=== PATIENT | male | born 2000 | race Caucasian/White ===

== ENCOUNTER 2022-11-10 19:39 | Emergency (ER) | payer BC, OTHER ==
[~2022-11-10] VITALS: Ht 190 cm; Wt 81.6 kg
--- NOTE | 2022-11-10 20:11 | ED EENT ---
History of Present Illness General Chief Complaint: Eye Problems Stated Complaint: LEFT EYE PAIN/SWELLING/REDNESS Nursing Triage Note: PATIENT STATES 2MO AGO "GOT A BUMP ON EYE" SAW AN EYE DOCTOR, RECIEVED EYE OINTMENT, DIDN'T HELP THUS THE BUMP "GOT BIGGER" NO PAIN GOT ANNOYING Source: patient Exam Limitations: no limitations History of Present Illness Date Seen by Provider: Nov 10, 2022 Time Seen by Provider: 20:09 Initial Comments Patient is a 22-year-old male who presents ED with a stye to his left upper eyelid. He has had this lump for the past 2 months. Patient reports increased size. Patient reports some pain with blinking. Denies of any surrounding redness or swelling. Patient saw a physician/allergy/immunology here in [place] 3 weeks ago placed on the eye drop to see if this helped. Patient has been using the ointment for the past 3 weeks without improvement. Patient has contacted multiple local physician/allergy/immunology and states he is not able to get seen until January. Patient denies of any visual loss, vomiting, diarrhea, fever, chills Allergies and Home Medications Allergies Coded Allergies: No Known Drug Allergies (Unverified , 11/10/22) Patient Home Medication List Home Medication List Reviewed: Yes Review of Systems Review of Systems Constitutional: No chills, No diaphoresis, No malaise, No weakness Eyes: Denies Decreased Acuity; Pain, Other (upper eyelid nodule) Ears: Denies Dizziness, Denies Pain, Denies Tinnitus, Denies Bloody Discharge Nose: denies clots, denies congestion Mouth: denies loose teeth, denies pain, denies swelling Throat: denies pain, denies swelling Respiratory: No cough, No dyspnea on exertion Cardiovascular: No chest pain Gastrointestinal: No abdominal pain, No diarrhea, No nausea, No vomiting Musculoskeletal: No back pain, No joint pain, No joint swelling, No muscle pain Skin: No change in color, No change in hair/nails All Other Systems Reviewed Negative Unless Noted: Yes Past Rriphjt-Atmuur-Njyiby Hx Patient Social History Tobacco Use?: No Use of E-Cig and/or Vaping dev: No Substance use?: No Alcohol Use?: No Pt feels they are or have been: No Immunizations Up To Date Influenza Vaccine Up-to-Date: No; Not Current First/Initial COVID19 Vaccinat: N/A Second COVID19 Vaccination Jay: N/A Past Medical History Surgery/Hospitalization HX: NONE Physical Exam Vital Signs Vital Signs - First Documented 11/10/22 19:50 Temp 36.5 Pulse 76 Resp 20 B/P (MAP) 147/100 (116) Pulse Ox 100 O2 Delivery Room Air Height, Weight, BMI Height: '" Weight: lbs. oz. kg; 22.00 BMI Method: General Appearance: WD/WN, no apparent distress Eyes: left eye other (Pea-sized nodule left upper eyelid. No purulent drainage. Extraocular was intact pupils reactive light. 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 No active drainage. Concern for stye. Increased size for the past 2 months. Patient was wanting this drained here in the ED. Patient has followed up with [facility] eye care 3 weeks ago was placed on antibiotic eyedrops without much improvement. Patient has called multiple project lead but not able to get seen until January. On exam he does have a stye to this location. Discussed with patient that this needs to see a project lead. Due to location I do not feel comfortable draining. I suggested contacting the physician/allergy/immunology who saw him initially for further guidance. They did offer a referral to someone who would according to the patient. Discussed warm compresses. There is no evidence of periorbital cellulitis. Patient states it feels more uncomfortable. Impression Primary Impression: Stye Disposition: 01 HOME, SELF-CARE Condition: Stable Departure-Patient Inst. Decision time for Depature: 20:10 Referrals: [facility] [place],LOCAL PHYSICIAN (PCP) Primary Care Physician Patient Instructions: Lauryn (DC) Add. Discharge Instructions: Need to follow-up with [facility] eye care for further evaluation. Warm compresses. Continue with antibiotic All discharge instructions reviewed with patient and/or family. Voiced understanding. MARY DILL Nov 10, 2022 20:11
[2022-11-10 20:14] VITALS: BP 141/94
== END 2022-11-10 20:15 | disposition home or self-care (01) ==
LOC: ER 19:42
DX: H00.014 Hordeolum externum left upper eyelid (principal); Z28.310 Unvaccinated for COVID-19
CPT/HCPCS: 99281